=== PATIENT | female | born 1990 | race Caucasian/White ===

== ENCOUNTER → 2018-08-14 | Outpatient (CLI) | payer OTHER ==
[2014-02-03 21:02] VITALS: BP 121/69
[~2018-08-14] MED LIST: NO HOME MEDICATIONS; PRENATAL1 TA1 PO; TYLENOL 500MG500 MG PO
== END ==
LOC: LAB 21:29
DX: J02.9 Acute pharyngitis, unspecified (principal)

== ENCOUNTER → 2019-10-26 | Outpatient (CLI) | payer OTHER ==
[2014-02-03 21:02] VITALS: BP 121/69
== END ==
LOC: LAB 11:48
DX: Z20.828 Contact with and (suspected) exposure to other viral communicable diseases (principal)

== ENCOUNTER → 2020-03-15 | Outpatient (CLI) | payer OTHER ==
[2014-02-03 21:02] VITALS: BP 121/69
== END ==
LOC: LAB 08:00
DX: U07.1 COVID-19 (principal)